=== PATIENT | male | born 1965 | race Caucasian/White ===

== ENCOUNTER 2024-05-23 19:40 | Emergency (ER) | payer MEDICAID ==
[~2024-05-23] VITALS: Ht 177.8 cm; Wt 82.0 kg
[2024-05-23 19:52] VITALS: O2SAT 97
[2024-05-23] MEDS: SODIUM CHLORIDE 0.9% 1,000 ML IV ONE (21:56)
[2024-05-23] MEDS: LORAZEPAM 2MG/ML INJ IV ONE (21:59)
[2024-05-23 22:05] LABS: HEMATOCRIT. 34.7 % (42.0-52.0); HEMOGLOBIN. 11.5 g/dL (14.0-18.0); MEAN CORPUSCULAR HEMOGLOBIN 33.7 pg (28.0-32.0); MEAN CORPUSCULAR HGB CONC 33.1 g/dL (31.0-37.0); MEAN CORPUSCULAR VOLUME 101.8 fL (80.0-94.0); MEAN PLATELET VOLUME 7.4 fl (7.4-10.4); PLATELET 348 x1000/uL (130-400); RED BLOOD CELL COUNT 3.41 mill/uL (4.7-6.1)
[2024-05-23 22:06] LABS: DIFFERENTIAL COMMENT 1
[2024-05-23 22:07] LABS: CHLORIDE 99 mEq/L (98-107); SODIUM 136 mEq/L (136-145)
[2024-05-23 22:08] LABS: CALCIUM 9.9 mg/dL (8.7-10.4); CARBON DIOXIDE 27 mEq/L (21-32)
[2024-05-23 22:13] LABS: CREATININE 0.7 mg/dL (0.6-1.3); GLUCOSE 136 mg/dL (70-105); UREA NITROGEN BLOOD 12 mg/dL (9-23)
[2024-05-23 22:14] LABS: ETHANOL BLOOD < 10 mg/dL (<10)
[2024-05-23 22:28] LABS: PLATELET ESTIMATE NORMAL
[2024-05-23 22:29] LABS: ANISOCYTOSIS 1+
[2024-05-23 23:29] LABS: VALPROIC ACID 17.8 ug/mL (50-100)
[2024-05-23 23:35] LABS: CARBAMAZEPINE < 0.4 ug/mL (4-12); PHENYTOIN < 2.0 ug/mL (10-20)
[2024-05-24] MEDS: SODIUM CHLORIDE 0.9% (SEPSIS BOLUS) IV ONE (00:07)
[2024-05-24 00:31] LABS: CHLORIDE 101 mEq/L (98-107); POTASSIUM 3.7 mEq/L (3.5-5.1); SODIUM 135 mEq/L (136-145)
[2024-05-24 00:32] LABS: CARBON DIOXIDE 24 mEq/L (21-32)
[2024-05-24 00:37] LABS: CREATININE 0.5 mg/dL (0.6-1.3); GLUCOSE 119 mg/dL (70-105)
[2024-05-24 00:38] LABS: UREA NITROGEN BLOOD 10 mg/dL (9-23)
[2024-05-24 00:44] LABS: PROTHROMBIN TIME 10.5 sec (9.6-11.0)
[2024-05-24 00:49] LABS: CLARITY URINE CLEAR (CLEAR); COLOR URINE YELLOW (YELLOW); GLUCOSE URINE NEGATIVE (NEGATIVE); KETONES URINE 3+ (NEGATIVE); LEUKOCYTE ESTERASE URINE NEGATIVE (NEGATIVE); NITRITE URINE NEGATIVE (NEGATIVE); OCCULT BLOOD URINE NEGATIVE (NEGATIVE); PH URINE 7.5 (4.5-8.0); PROTEIN URINE NEGATIVE (NEGATIVE); SPECIFIC GRAVITY URINE 1.019 (1.005-1.030)
[2024-05-24 01:06] LABS: *AMPHETAMINES SCREEN URINE PRESUMPTIVE POSITIVE (NEGATIVE); *BARBITURATES SCREEN URINE NEGATIVE (NEGATIVE); *BENZODIAZEPINES SCREEN URINE NEGATIVE (NEGATIVE); *COCAINE SCREEN URINE NEGATIVE (NEGATIVE); METHADONE URINE SCREEN NEGATIVE (NEGATIVE); OPIATES URINE SCREEN NEGATIVE (NEGATIVE)
[2024-05-24 01:07] LABS: CANNABINOID URINE SCREEN PRESUMPTIVE POSITIVE (NEGATIVE); ECSTASY MDMA SCREEN URINE NEGATIVE (NEGATIVE); PHENCYCLIDINE URINE SCREEN NEGATIVE (NEGATIVE)
[2024-05-24 07:28] VITALS: BP 117/73; PULSE 82; RESP 14; TEMP 36.8; O2SAT 97
== END 2024-05-24 07:45 | disposition short-term general hospital (02) ==
LOC: ER 19:40 → EDBEDREQ 21:48 → EDBEDREQTM 05-24 01:14 → EDBEDREQ 05-24 01:14 → EDBEDREQDT 05-24 01:14 → ER 05-24 07:45
DX: R41.82 Altered mental status, unspecified (principal); R51.9 Headache, unspecified; I10 Essential (primary) hypertension; I67.82 Cerebral ischemia; Z87.820 Personal history of traumatic brain injury
CPT/HCPCS: 80048; 80320; 80156; 80185; 83605; 80165; 85025; 85610; 87040; 36415; 84145; 71045; 70450; 72125; 93005; 96361 ×2; 96374; 99285; 80305; 81003; 87086; J2060; J7030; Z7610 ×2; G0480